=== PATIENT | male | born 1980 | race Caucasian/White ===

== ENCOUNTER 2023-07-11 22:37 | Emergency (ER) | payer BC, MEDICAID, OTHER ==
[~2023-07-11] VITALS: Ht 188 cm; Wt 137.0 kg
[2023-07-11 22:45] VITALS: BP_SYST 180; PULSE 105; RESP 16; TEMP 98.1; O2SAT 95
[2023-07-11] MEDS ORDERED: HYDR-3917 PO (23:41)
[2023-07-11 23:58] VITALS: BP_SYST 180; PULSE 105; RESP 16; TEMP 98.1; O2SAT 95
== END 2023-07-11 23:58 | disposition home or self-care (01) ==
LOC: SED 22:37
DX: S60.042A Contusion of left ring finger without damage to nail, initial encounter (principal); I10 Essential (primary) hypertension; Z87.442 Personal history of urinary calculi; Z79.899 Other long term (current) drug therapy; W23.0XXA Caught, crushed, jammed, or pinched between moving objects, initial encounter; Y93.67 Activity, basketball; Y92.89 Other specified places as the place of occurrence of the external cause; Y99.8 Other external cause status
CPT/HCPCS: 73140; 99283